=== PATIENT | male | born 2000 ===

== ENCOUNTER 2019-03-30 12:35 | Emergency (ER) | payer OTHER ==
--- NOTE | 2019-03-30 13:48 | UC ---
Hand/Wrist HPI - HPI Summary HPI Summary: Pt presents with c/o pain and swelling to right hand after being kicked by cow earlier today. 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 - History Of Current Complaint Chief Complaint: UCUpperExtremity Stated Complaint: HAND INJURY Time Seen by Provider: 03/30/19 13:20 Hx Obtained From: Patient, Blood And Plasma Laboratory Assistant ?: No Onset/Duration: Sudden Onset, Still Present Severity Initially: Moderate Severity Currently: Moderate Pain Intensity: 6 Character Of Pain: Dull, Aching Aggravating Factor(s): Movement Alleviating Factor(s): Rest Associated Signs And Symptoms: Positive: Swelling Related History: Dominant Hand Right - Risk Factors Compartment Syndrome Risk Factors: Pain - Allergies/Home Medications Allergies/Adverse Reactions: Allergies Allergy/AdvReac Type Severity Reaction Status Date / Time environmental Allergy Congestion Uncoded 03/30/19 13:03 Home Medications: Home Medications Methyl Salicylate/Menth/Camph [Bengay Ultra Strength Cream] 1 applic TOPICAL ONCE PRN 03/30/19 [History Confirmed 03/30/19] PMH/Surg Hx/FS Hx/Imm Hx Previously Healthy: Yes - Surgical History Surgical History: None - Family History Known Family History: Positive: Cardiac Disease - Social History Occupation: Employed Full-time Lives: With Family Alcohol Use: None Substance Use Type: None Smoking Status (MU): Never Smoked Tobacco Have You Smoked in the Last Year: No Review of Systems All Other Systems Reviewed And Are Negative: Yes Constitutional: Positive: Negative Skin: Positive: Negative Eyes: Positive: Negative ENT: Positive: Negative Respiratory: Positive: Negative Cardiovascular: Positive: Negative Gastrointestinal: Positive: Negative Genitourinary: Positive: Negative Motor: Positive: Decreased ROM - right hand, Weakness - right hand Neurovascular: Positive: Negative Musculoskeletal: Positive: Arthralgia - right hand, Decreased ROM - right hand, Edema - right hand, Myalgia - right hand Neurological: Positive: Negative Psychological: Positive: Negative Is Patient Immunocompromised?: No Physical Exam Triage Information Reviewed: Yes Appearance: Well-Appearing Vital Signs: Initial Vital Signs Temp 98.2 F 03/30/19 12:56 Pulse 91 03/30/19 12:56 Resp 18 03/30/19 12:56 BP 135/89 03/30/19 12:56 Pulse Ox 98 03/30/19 12:56 Vital Signs Reviewed: Yes Eye Exam: Normal ENT: Positive: Hearing grossly normal Respiratory: Positive: No respiratory distress Musculoskeletal: Positive: Strength Limited @ - right hand, ROM Limited @ - right hand, Edema @ - right hand Neurological Exam: Normal Psychological Exam: Normal Skin Exam: Normal Diagnostics - Radiology No standard instances Radiology Interpretation Completed By: Radiologist - IMPRESSION: NO ACUTE OSSEOUS INJURY. IF SYMPTOMS PERSIST, RECOMMEND REPEAT IMAGING. Hand/Wrist Course/Dx - Differential Dx/Diagnosis Differential Diagnosis/HQI/PQRI: Contusion, Fracture Provider Diagnosis: Contusion of right hand Discharge - Sign-Out/Discharge Documenting (check all that apply): Patient Departure All imaging exams completed and their final reports reviewed: Yes - Discharge Plan Condition: Stable Disposition: HOME Patient Education Materials: Contusion in Adults (ED), R.I.C.E. Treatment (ED) , Safe Use of NSAIDs (ED) Print Language: PASHTO Forms: *Work Release Referrals: [facility] [place] [facility]IAN REFERRAL [Outside] - If Needed No Primary Care Phys,NOPCP [Primary Care Provider] - Jessica Fernandes MD [Medical Doctor] - If Needed - Billing Disposition and Condition Condition: STABLE Disposition: Home
== END 2019-03-30 14:11 | disposition home or self-care (01) ==
LOC: UCEAST 12:35
DX: S60.221A Contusion of right hand, initial encounter (principal); W55.22XA Struck by cow, initial encounter; Y92.73 Farm field as the place of occurrence of the external cause
CPT/HCPCS: 99202; G0463